=== PATIENT | female | born 1970 | race Caucasian/White ===

== ENCOUNTER 2017-12-26 17:32 | Emergency (ER) | payer OTHER ==
[~2017-12-26] VITALS: Ht 162.6 cm; Wt 54.4 kg
[2017-12-26] MEDS ORDERED: BENZ100A PO (18:26)
== END 2017-12-26 18:32 | disposition home or self-care (01) ==
LOC: ER 17:32
DX: J11.1 Influenza due to unidentified influenza virus with other respiratory manifestations (principal)
CPT/HCPCS: 87081; 87430; 99283; J1100

== ENCOUNTER 2017-12-29 11:07 | Emergency (ER) | payer OTHER ==
[~2017-12-29] VITALS: Ht 162.6 cm; Wt 54.4 kg
[~2017-12-29 11:07] MED LIST: BENZ100A PO
[2017-12-29 12:56] LABS: Hematocrit 35.7 % (33.0-51.0); Hemoglobin 12.4 g/dL (11.5-16.0); Mean Corpuscular HGB 32.3 pg (26.0-34.0); Mean Corpuscular HGB Conc 34.7 g/dL (31.5-36.5); Mean Corpuscular Volume 93 fL (80-100); Mean Platelet Volume 10.1 fL (9.1-12.4); Platelet Count 194 K/mm3 (150-400); RDW Coefficient Variation 12.4 % (11.7-14.2); RDW Standard Deviation 42.3 fL (35.1-46.3); Red Blood Cell Count 3.84 M/mm3 (3.80-5.20); White Blood Cell Count 14.89 K/mm3 (4.00-11.30)
[2017-12-29 13:16] LABS: Alanine Aminotransfer (ALT/SGP 16 U/L (12-78); Albumin, Blood 2.4 g/dL (3.4-5.0); Albumin/Globulin Ratio 0.5 (0.8-1.8); Alk Phos 89 U/L (50-136); Anion Gap 13 mmol/L (6-16); Aspartate Aminotrans (AST/SGOT 29 U/L (12-37); Bilirubin, Total 0.7 mg/dL (0.1-1.0); Blood Urea Nitrogen 12 mg/dL (8-24); Bun/Creatinine Ratio 26.9 (12.0-20.0); CO2, Blood 25 mmol/L (21-32); Calcium, Blood 8.7 mg/dL (8.5-10.1); Chloride, Blood 87 mmol/L (98-108); Creatinine, Blood 0.45 mg/dL (0.40-1.00); Globulin, Blood 5.1 g/dL (2.2-4.0); Glomerular Filtration Rate >60 (60-); Glucose, Blood 88 mg/dL (70-99); Sodium, Blood 125 mmol/L (136-145); Total Protein, Blood 7.5 g/dL (6.4-8.2)
[2017-12-29 13:18] LABS: BAND PERCENT MAN 15 % (0-8); BASOPHILS PERCENT MAN 0 % (0-2); EOSINOPHILS PERCENT MAN 0 % (0-6); LYMPHOCYTES % ATYPICAL MANUAL 1 % (0-0); LYMPHOCYTES ABSOLUTE MAN 0.59 K/mm3 (0.84-5.20); LYMPHOCYTES PERCENT MAN 3 % (21-46); METAMYELOCYTE ABSOLUTE MAN 0.14 K/mm3 (0.00-0.00); METAMYELOCYTE PERCENT MAN 1 % (0-0); MONOCYTES ABSOLUTE MAN 1.78 K/mm3 (0.16-1.47); MONOCYTES PERCENT MAN 12 % (4-13); NEUTROPHILS ABSOLUTE MAN 12.35 K/mm3 (1.96-9.15); SEG NEUTROPHILS PERCENT MAN 68 % (41-73); TOTAL CELLS COUNTED 100
== END 2017-12-29 16:30 | disposition short-term general hospital (02) ==
LOC: ER 11:07
PROVIDERS: Emergency Medicine
DX: A41.9 Sepsis, unspecified organism (principal); J36 Peritonsillar abscess; K12.2 Cellulitis and abscess of mouth; J98.51 Mediastinitis; E87.1 Hypo-osmolality and hyponatremia; E87.6 Hypokalemia; Z87.891 Personal history of nicotine dependence
CPT/HCPCS: 36415; 70491; 80053; 83605; 85025; 87040; 96365; 96375; 99285; J0295; J1100; J7030; Q9967

== ENCOUNTER → 2018-03-22 | Outpatient (CLI) | payer OTHER | LOC: LAB SHORT 09:40 → LAB 09:40 | DX: Z09 Encounter for follow-up examination after completed treatment for conditions other than malignant neoplasm (principal); Z93.1 Gastrostomy status | CPT/HCPCS: 87070; 87075; 87205 ==